=== PATIENT | female | born 1985 | race Hispanic/Latino ===

== ENCOUNTER 2021-08-19 12:49 | Day surgery (SDC) | payer BC ==
[2021-08-14 14:59] LABS: Absolute Lymphocytes (CBC) 2.1 K/uL (0.7-4.9); Hematocrit 32.4 % (36.0-45.0); Lymphocytes % 37.3 % (15.3-44.8); RBC Red Blood Cell Count 4.34 M/uL (3.86-4.86)
[2021-08-14 15:17] LABS: Potassium 3.6 mmol/L (3.5-5.1)
[2021-08-19] MEDS ORDERED: Ringers Lactate 1,000 ML IV ONE (12:54)
[2021-08-19 13:06] LABS: Specific Gravity 1.015 (1.005-1.030)
[2021-08-19] MEDS ORDERED: CELECOXIB 100 MG CAPSULE ONE (13:29)
[2021-08-19] MEDS ORDERED: ACETAMINOPHEN 500 MG TAB ONE (13:30)
[2021-08-19] MEDS ORDERED: propofoL 200 MG/20 ML VIAL IV ONE (15:14)
[2021-08-19] MEDS ORDERED: FENTANYL CITR 100 MCG/2 ML ONE ×4 (15:14→16:39)
[2021-08-19] MEDS ORDERED: LIDOCAINE 2% MPF 5 ML VIAL ONE (15:14)
[2021-08-19] MEDS ORDERED: KETOROLAC 30 MG/ML INJ ONE (15:26)
[2021-08-19] MEDS ORDERED: dexAMETHasone 10 MG/ML VIAL ONE ×2 (15:26→16:10)
[2021-08-19] MEDS ORDERED: BUPIVACAINE 0.5% PF 10 ML VIAL ONE (16:09)
[2021-08-19 17:55] VITALS: O2SAT 100
[2021-08-19] MEDS: HYDROMORPHONE HCL 1 MG/ML INJ ONE ×2 (18:04→18:15)
[2021-08-19 18:37] VITALS: BP 139/94; TEMP 97.1
[2021-08-19] MEDS ORDERED: HYDROCODONE/APAP 7.5/325 MG TAB ONE (18:48)
[2021-08-19] MEDS ORDERED: ONDANSETRON 4 MG/2 ML VIAL ONE (19:07)
--- NOTE | 2021-08-20 05:10 | OP ---
Date of Procedure: 08/19/2021 Surgeon: Nayan Fernandes MD Preoperative Diagnoses: Left knee pain with mechanical symptoms and symptoms of instability with med ial meniscal tear and possible anterior cruciate ligament disruption. Postoperative Diagnoses: Left knee pain with mechanical symptoms and symptoms of instability with me dial meniscal tear and possible anterior cruciate ligament disruption with definite anterior cruciate ligament disruption. Procedure: Left knee arthroscopy with debridement of complex chronic medial meniscal tear with Achil les tendon allograft anterior cruciate ligament reconstruction. Estimated Blood Loss: 30 cc. Complications: There were no complications. Specimen: No pathology specimen sent. Indications For Operation: Ms. Dudley is a 35-year-old who unfortunately injured her left knee some years ago. She came to see me at that time and was complaining of instability and pain. She had an MRI done at that time which demonstrated a medial meniscal tear as well as an ACL disruption. She e lected to go without surgery at that time, but unfortunately came to see me late last year saying chauncey t her knee is continuing to be unstable and she is continuing to have pain, swelling, and problems re lated to her knee and basically now requests operative intervention. A second MRI was performed, whi ch demonstrated the meniscal tear. However, the radiologist stated that the ACL appeared to be intac t. I did not really have good access to her old MRI. However, this was quite old and so I talked to the radiologist who seemed to be certain that the ACL was intact on certain sequences and felt that it was not disrupted. Given her symptoms of instability and previous MRI, we decided we were going t o have the equipment and graft available for ACL reconstruction if needed and also discussed the brit ent's options including not reconstructing the ACL even if torn. The patient stated that she would l malvin to have the ACL reconstructed if it was incompetent as well as the other procedures we discussed and I have done her previous ACL on the contralateral side, and she understands the difference betwee n rehab and all of the other issues related with that and agrees to proceed. Description Of Procedure: The patient was taken to the operating room and placed in supine position. General anesthesia was obtained by staff. Following this, an examination under anesthesia was perf ormed, which demonstrated an obvious pivot shift, therefore decision made to move forward with ACL re construction. A standard superomedial arthroscopy portal was then placed and with use of the drainag e needle liberated a few cc of rather normal-appearing synovial fluid. This was followed by placing a relatively high lateral arthroscopy portal for examination of the knee, which we examined at the lopez prapatellar pouch, medial and lateral gutters, medial and lateral compartments as well as the notch a nd patellofemoral joint. The ACL did not appear to be completely normal. It did have some rather ro bust ligamentum mucosum fibers as well as perhaps a few intact strands. The medial meniscus had a fi shmouth type appearance with blunting of 2 radial tears as well as an additional horizontal component that went nearly to the edge. This did not appear to be repairable. A medial portal was then made using a needle for localization. This was done quite high and the thought that perhaps we would use an accessory medial portal for drilling and placement of the graft. The medial meniscus was then dena rided back to a firm hook stable well contoured base. Attention was then turned to the ligamentum mu cosum as well as the ACL. The patient was extremely small being 4 feet 11 inches and it was felt chauncey t it would be somewhat difficult to place the anteromedial evelin given the constraints of the patient 's anatomy and felt probably it would be better to establish accessory anterior medial portal as well to give better position of the portal itself. However, we decided to move forward with transtibial placement as this is what she had before and appears to be performing well. An incision was made jus t distal and medial to the tibial tubercle. This was made through skin only with hemostats being use d to localize position of the tibial aimer. The tibial guide pin was then placed at appropriate foot print and the reaming was then performed without difficulty. After this, the size 7 offset is then u sed and placed at approximately 11 o'clock position. The Beath pin was then placed through the later al aspect of the thigh. This did ream to a depth of slightly over 25, as our bone plug of the graft was 25. This was then placed through the tibial tunnel and into the bone tunnel of the femur without any difficulty. It was held in place while it was notched and the tap was then placed without diffi culty with care being taken to hold the tension on both ends of the graft. An Ar[employer] bio interferen ce screw was then placed through the medial tunnel and has a very good bite, appears to hold quite we ll. The knee was then cycled in and brought down and a second tibial interference screw was then yusef ag inferior to the tibial portion of the graft. The graft is only slightly protruding and it is the n transected flush. The wounds were copiously irrigated and the skin was closed using interrupted 2- 0 Vicryl sutures, followed by naveen. Following this, it comes to full flexion ad full extension an d with a very good and solid Estuardo's. The patient was then placed in a dressing about the knee. S he is going to require a block by Anesthesia. Following this, she will have a more substantial dress ing as well as a knee immobilizer. We anticipate seeing her back in the office in 2 days. QUITA Voice ID: [id number] Report ID: [id number]
== END 2021-08-19 19:33 | disposition home or self-care (01) ==
LOC: OR 12:49
PROVIDERS: ATTEND Orthopaedic Surgery
PROC: 0SBD4ZZ Excision of Left Knee Joint, Percutaneous Endoscopic Approach (ICD-10-PCS; principal; 2021-08-19 14:00)
PROC: 0MRP4KZ Replacement of Left Knee Bursa and Ligament with Nonautologous Tissue Substitute, Percutaneous Endoscopic Approach (ICD-10-PCS; 2021-08-19 14:00)
DX: S83.242A Other tear of medial meniscus, current injury, left knee, initial encounter (principal); S83.512A Sprain of anterior cruciate ligament of left knee, initial encounter
CPT/HCPCS: 85025; 80048; 36415; 81025; 29877; 29888; J2704; J3010 ×4; J1100 ×2; J1170; J7120; J2405